=== PATIENT | female | born 1965 | race Caucasian/White ===

== ENCOUNTER 2019-11-14 11:25 | Emergency (ER) | payer OTHER, SELFPAY ==
[2019-11-14 11:28] VITALS: BP 164/114; PULSE 78; RESP 18; TEMP 36.3; O2SAT 98; O2SAT 99; BMI 39.9
--- NOTE | 2019-11-14 11:37 | EKG12_ITS ---
Test Reason : Blood Pressure : / mmHG Vent. Rate : 056 BPM Atrial Rate : 056 BPM P-R Int : 150 ms QRS Dur : 078 ms QT Int : 396 ms P-R-T Axes : 031 -03 002 degrees QTc Int : 382 ms Sinus bradycardia Otherwise normal ECG Confirmed by YUDELKA HALEY, ALEJANDRO ([id number]), editorial specialist MARY GONZALES ([id number]) on 11/15/2019 1:08:07 PM Referred By: NICKO Confirmed By:JM JHA MD
--- NOTE | 2019-11-14 11:54 | ED.DCSUM_ITS ---
History of Present Illness Chief Complaint: Dizziness Informant: Patient Onset: Today Context: Sudden Onset Timing: Intermittent Current Severity: Moderate Maximum Severity: Moderate Narrative: The patient is an otherwise healthy 54-year-old female with history of GERD the presents to the emergency department after near syncopal episode. She states that she was in her normal state of health and was at work today. She states she sat down at the computer, noted some flashes in her vision. She got up to continue her work, and became lightheaded and had tunnel vision. She felt as if she was going to pass out. She sat on the ground but did not lose consciousness. 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 She states she has no history of hypertension. The patient did have knee replacement in August, and states that she is had swelling in her right leg since then. She denies orthopnea. She denies chest pain. She has had a scant cough for the past few days but denies any fevers or productive sputum. Prior similar symptoms: No Recent Illness/Hospitalization: No Past Medical History - Allergies and Home Meds Allergies/Adverse Reactions: Allergies No Known Allergies Allergy (Verified 11/14/19 11:27) Primary Care Physician: JODI MANCIA [Other] Prior records reviewed: Yes Past Medical History: - - GERD Surgical History: total knee arthroplasty Review of Systems General: Denies: Chills, Fever, Sweats Eyes: Denies: Visual changes - bilaterally, Diplopia ENT: Denies: Rhinorrhea, Sore throat Cardiovascular: Reports: Palpitations. Denies: Chest pain Respiratory: Reports: Dyspnea, Cough. Denies: Dyspnea on exertion Gastrointestinal: Reports: Nausea. Denies: Abdominal pain, Vomiting, Diarrhea, Melena, Hematochezia Genitourinary: Denies: Dysuria, Hematuria, Frequency Musculoskeletal: Denies: Back pain, Extremity Pain Skin: Denies: Rash, Wounds Neurological: Denies: Headache, Weakness, Numbness Physical Exam Vital Signs/Narrative: Vital Signs Temp Pulse Resp BP Pulse Ox 11/14/19 11:28 97.4 F L 78 18 164/114 H 99 Inital Vital Signs reviewed: Yes General: Well nourished, Well developed, No Acute Distress Head: Normocephalic, Atraumatic Eyes: Perrl, EOMI ENT: Moist mucous membranes, No rhinorrhea Neck: Supple, Nontender Cardiovascular: Regular rate, Regular rhythm, No murmurs Respiratory: No distress, CTA bilaterally, Chest nontender Abdomen: Soft, Nontender, Nondistended, Normal bowel sounds Back: Nontender, Normal Inspection Extremities: Nontender, No edema Skin: Normal color, No rash Neurological: Alert, Oriented x3, Cranial nerves II-XII grossly intact, Normal Strength, Normal Sensation Psychological: Normal affect, Normal Mood Diagnostic/Tx/Re-eval Clinical Impression(s) from Imaging Studies Chest X-Ray 11/14/19 12:20 IMPRESSION: Normal x-ray examination of the chest. Electronically Signed: Alisha Weaver, at 12:59 EDT Tel , Service support , Abnormal Lab Results 11/14/19 11/14/19 11/14/19 12:15 12:15 12:15 WBC 6.8 RBC 4.98 Hgb 13.0 Hct 40.2 MCV 80.7 L MCH 26.1 L MCHC 32.3 RDW Std Deviation 38.9 RDW Coeff of Gwendolyn 13.5 Plt Count 284 MPV 11.2 Immature Gran % (Auto) 0.300 Neut % (Auto) 57.0 Lymph % (Auto) 33.0 [place] % (Auto) 7.0 Eos % (Auto) 2.1 Baso % (Auto) 0.6 Absolute Neuts (auto) 3.9 Absolute Lymphs (auto) 2.23 Nucleated RBC % 0 D-Dimer Quant (PE/DVT) Cancelled Sodium 140 Potassium 4.2 Chloride 106 Carbon Dioxide 28.0 Anion Gap 6 BUN 14 Creatinine 0.80 Estim Creat Clear Calc 65.06 Est GFR (MDRD) Af Amer 97 Est GFR (MDRD) Non-Af 80 BUN/Creatinine Ratio 17.5 Glucose 89 Calcium 9.1 Total Bilirubin 0.60 AST 31 ALT 44 Alkaline Phosphatase 81 Troponin I < 0.015 Total Protein 7.8 Albumin 3.9 Globulin 3.9 Albumin/Globulin Ratio 1.0 11/14/19 12:40 WBC RBC Hgb Hct MCV MCH MCHC RDW Std Deviation RDW Coeff of Gwendolyn Plt Count MPV Immature Gran % (Auto) Neut % (Auto) Lymph % (Auto) [place] % (Auto) Eos % (Auto) Baso % (Auto) Absolute Neuts (auto) Absolute Lymphs (auto) Nucleated RBC % D-Dimer Quant (PE/DVT) 0.33 Sodium Potassium Chloride Carbon Dioxide Anion Gap BUN Creatinine Estim Creat Clear Calc Est GFR (MDRD) Af Amer Est GFR (MDRD) Non-Af BUN/Creatinine Ratio Glucose Calcium Total Bilirubin AST ALT Alkaline Phosphatase Troponin I Total Protein Albumin Globulin Albumin/Globulin Ratio - Medical Decision Making The patient presents to the emergency department after near syncopal event. Her symptoms do seem vasovagal in nature. EKG was obtained which showed sinus rhythm without acute ischemic change. Normal axis and intervals. No prolonged QT or WPW. Troponin was negative. Chest x-ray shows no evidence of enlarged cardiac silhouette, volume overload, or other dangerous process. D-dimer was negative. Electrolyte panel was within normal limits. On reevaluation, the patient's blood pressure is normalized. She is had no further symptoms. She has a normal neurologic examination. At this point, given her lack of risk factors and her history of illness, I do feel that she is safe for outpatient follow-up. She is comfortable with this plan of care. Impression 1. Vasovagal near syncope ED Disposition - Plan for ED Patient: Instructions: NEAR SYNCOPE, Vasovagal Referrals: JODI MANCIA [Other]
--- NOTE | 2019-11-14 12:20 | RAD_ITS ---
STUDY: X-RAY CHEST REASON FOR EXAM: Female, 54 years old. Near syncopal episode TECHNIQUE: PA and lateral views of the chest. COMPARISON: None. FINDINGS: The lungs are clear and expanded. There is no demonstrated pleural abnormality. Normal size heart. Normal mediastinum and darcy. Normal visualized pulmonary arteries. Normal visualized aortic arch and descending thoracic aorta. Normal visualized thoracic spine. Normal visualized ribs, clavicles, and shoulders. There is no demonstrated abnormality of the visualized soft tissue structures of the upper abdomen. RAD/Chest PA and Lateral IMPRESSION: Normal x-ray examination of the chest. Electronically Signed: Alisha Weaver, at 12:59 EDT Tel , Service support ,
[2019-11-14 12:25] LABS: Absolute Lymphocyte Count 2.23 X10^3/uL (0.83-4.51); Absolute Neutrophil Count 3.9 X10^3/uL (2.0-7.7); Basophil# 0.04 X10^3/uL; Basophil% 0.6 % (0-1); Eosinophil# 0.14 X10^3/uL; Eosinophils% 2.1 % (0-5); Hematocrit 40.2 % (37-47); Lymphocyte # 2.23 X10^3/ul (4.0); Mean Corp Hgb Conc 32.3 g/dL (32-36); Mean Corpuscular Hgb 26.1 pg (27.0-32.0); Mean Corpuscular Volume 80.7 fL (81-99); Mean Platelet Vol. 11.2 fl (6.2-12.0); Monocyte# 0.47 X10^3/uL; NRBC Flagged by Analyzer 0 % (0-5); Neutrophil # 3.85 X10^3/uL (2.7-7.7); Platelet Count 284 K/mm3 (150-450); RBC Distribution Width CV 13.5 % (11.6-14.6); RBC Distribution Width SD 38.9 fl (35.1-43.9); Red Blood Count 4.98 M/mm3 (4.2-5.4); White Blood Count 6.8 K/mm3 (4.4-11.0)
[2019-11-14 12:47] LABS: AST(SGOT) 31 U/L (15-37); Alanine Aminotransfer ALT/SGPT 44 U/L (13-56); Albumin, Serum 3.9 g/dL (3.2-5.0); Alkaline Phosphatase 81 U/L (45-117); Anion Gap 6 (5-15); BUN 14 mg/dL (7-18); BUN/Creat Ratio 17.5 RATIO (10-20); Calcium,Total 9.1 mg/dL (8.5-10.1); Chloride 106 mmol/L (98-107); EST Glomerular Filtration Rate 80 mL/min (>60); Est Glom Filt Rate - Afr Amer 97 mL/min (>60); Estimated Creatinine Clearance 65.06 ml/min; Globulin 3.9 g/dL (2.2-4.2); Glucose 89 mg/dL (74-106); Potassium 4.2 mmol/L (3.5-5.1); Protein, Total 7.8 g/dL (6.4-8.2); Sodium Level 140 mmol/L (136-145)
[2019-11-14 12:59] LABS: D-Dimer Quantitative (DVT/PE) 0.33 FEU/ug/m (0.27-0.49)
[2019-11-14 13:14] VITALS: BP 147/90; PULSE 66; RESP 16; O2SAT 98
[2019-11-14 13:45] VITALS: BP 147/90; PULSE 66; RESP 16; O2SAT 98
== END 2019-11-14 13:47 | disposition home or self-care (01) ==
LOC: ED 11:52
PROVIDERS: Emergency Provider Emergency Medicine
DX: R55 Syncope and collapse (principal); K21.9 Gastro-esophageal reflux disease without esophagitis
CPT/HCPCS: 71046; 80053; 84484; 85025; 85379; 93005; 96360; 99284; J7040; A4216